=== PATIENT | female | born 2005 | race African-American/Black ===

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

== ENCOUNTER 2023-10-19 22:57 | Emergency (ER) | payer MEDICAID ==
[~2023-10-19] VITALS: Ht 157.5 cm; Wt 76.4 kg
[2023-10-19 23:00] VITALS: BP 107/66; PULSE 91; RESP 15; O2SAT 98
== END 2023-10-21 04:32 | disposition left against medical advice (07) ==
LOC: ER 22:57
DX: O20.8 Other hemorrhage in early pregnancy (principal); Z3A.01 Less than 8 weeks gestation of pregnancy

== ENCOUNTER 2024-02-14 18:13 | Emergency (ER) | payer MEDICAID ==
[~2024-02-14] VITALS: Ht 157.5 cm; Wt 67.4 kg
--- NOTE | 2024-02-14 18:44 | ED.PDOC ---
History of Present Illness HPI Comments 18-year-old female with no PMHx or PSHx presents with a chief complaint of nausea, vomiting, fever, and cough while being . Patient states that she is currently 23 weeks , . Patient mentions that she has been having a fever and cough for the past x 3 days, but has been having nausea and vomiting since 0500 this morning. Patient mentions also that she has not felt her baby moved since this morning. Patient denies any sick contacts at home, and reports that she last took Tylenol at 0500 this morning. Chief Complaint: Abdominal Pain Time Seen by MD: 18:35 Primary Care Provider: braulio Simmons Notes: Medications, Allergies Allergies: Coded Allergies: NO KNOWN ALLERGIES (Unverified , 08/01/18) Information Source: Patient Mode of Arrival: Ambulatory Severity: Moderate Timing: Days Duration: Since onset Prehospital treatment: None Past Medical History PAST MEDICAL HISTORY: Denies Surgical History: Denies all surgeries MAT INSPECTOR History: No Pertinent MAT INSPECTOR History Family History Family History: Reviewed,noncontributory to illness Social History Smoker: Non-Smoker Alcohol: Denies ETOH Use Drugs: Denies Drug Use Lives In: Home Constitutional: reports: fever; denies: chills, diaphoresis, fatigue, malaise, sweats, weakness, others EENTM: denies: blurred vision, double vision, ear bleeding, ear discharge, ear drainage, ear pain, ear ringing, eye pain, eye redness, hearing loss, mouth pain, mouth swelling, nasal discharge, nose bleeding, nose congestion, nose pain, photophobia, tearing, throat pain, throat swelling, voice changes, others Respiratory: reports: cough; denies: hemoptysis, orthopnea, SOB at rest, shortness of breath, SOB with excertion, stridor, wheezing, others Cardiovascular: denies: chest pain, dizzy spells, diaphoresis, Dyspnea on exertion, edema, irregular heart beat, left arm pain, lightheadedness, palpitations, PND, syncope, others Gastrointestinal: reports: nausea, vomiting; denies: abdomen distended, abd ominal pain, blood streaked bowels, constipated, diarrhea, dysphagia, difficulty swallowing, hematemesis, melena, poor appetite, poor fluid intake, rectal bleeding, rectal pain, others Genitourinary: reports: ; denies: abnormal vagina bleeding, burning, dyspareunia, dysuria, flank pain, frequency, hematuria, incontinence, pain, vag jessy discharge, urgency, others Neurological: denies: dizziness, fainting, headache, left sided numbness, left sided weakness, numbness, paresthesia, pre-existing deficit, right sided numbness, right sided weakness, seizure, speech problems, tingling, tremors, weakness, others Musculoskeletal: denies: back pain, gout, joint pain, joint swelling, muscle pain, muscle stiffness, neck pain, others Integumetry: denies: bruises, change in color, change in hair/nails, dryness, laceration, lesions, lumps, rash, wounds, others Allergic/Immunocompromised: denies: Difficulty Healing, Frequent Infections, Hives, Itching, others Hematologic/Lymphatic: denies: anemia, blood clots, easy bleeding, easy bruising, swollen glands, others Endocrine: denies: excessive hunger, excessive sweating, excessive thirst, excessive urination, flushing, intolerance to cold, intolerance to heat, unexplained weight gain, unexplained weight loss, others Psychiatric: denies: anxiety, bipolar disorder, depression, hopeless, panic disorder, schizophrenia, sleepless, suicidal, others All Other Systems: Reviewed and Negative Physical Exam General Appearance: No Apparent Distress, Normal HEENT: Normal ENT Inspection, Pharynx Normal, TMs Normal Neck: Full Range of Motion, Non-Tender, Normal, Normal Inspection Respiratory: Chest Non-Tender, Lungs Clear, No Accessory Muscle Use, No Respiratory Distress, Normal Breath Sounds Cardiovascular: No Edema, No JVD, No Murmur, No Gallop, Normal Peripheral Pulses, Regular Rate/Rhythm Breast Exam: Deferred Gastrointestinal: No Organomegaly, Non Tender, No Pulsatile Mass, Normal Bowel Sounds, Soft, Other ( ABDOMEN) Genitalia: Deferred Pelvic: Deferred Rectal: Deferred Extremities: No calf tenderness, Normal capillary refill, Normal inspection, Normal range of motion, Non-tender, No pedal edema Musculoskeletal : Apperance: Normal Neurologic: Alert, wildland firefighter II-XII nml as Tested, No Motor Deficits, Normal Affect, Normal Mood, No Sensory Deficits Cerebellar Function: Normal Reflexes: Normal Skin: Dry, Normal Color, Warm Lymphatic: No Adenopathy Was a procedure done? Was a procedure done?: No Differential Dx Considerations may include: Viral syndrome X-Ray, Labs, Meds, VS Vital Signs Date Time Temp Pulse Resp B/P (MAP) Pulse Ox O2 Delivery O2 Flow Rate FiO2 02/14/24 19:32 100.1 02/14/24 19:24 100 18 97 Room Air* 0 21 02/14/24 19:24 100.1 100 16 122/67 (85) 97 100.1 02/14/24 18:22 98.3 112 17 127/68 (87) 98 Lab Test 02/14/24 19:43 02/14/24 19:10 Range/Units Urine Color Light-orange Yellow Urine Clarity Turbid H Clear Urine pH 6.5 5.0-9.0 Urine Specific [place] 1.020 1.001-1.035 Urine Protein Trace H Negative Urine Ketones Negative Negative Urine Blood Negative Negative /uL Urine Nitrite Negative Negative Urine Bilirubin Negative Negative Urine Urobilinogen Normal Negative mg/dL Urine Leukocyte Esterase 3+ Negative /uL Urine RBC 4 0 - 4 /hpf Urine WBC 4 0 - 5 /hpf Urine Squamous Epithelial Cells Mod <5 /hpf Urine Bacteria Few H None Seen /hpf Urine Mucus Few None Seen Urine Glucose Normal Normal mg/dL White Blood Count 13.9 H 4.4-10.8 10^3/uL Red Blood Count 4.05 4.0-5.20 10^6/uL Hemoglobin 12.1 L 12.2-16.2 g/dL Hematocrit 36.7 36.0-46.0 % Mean Corpuscular Volume 90.5 80.0-100.0 fL Mean Corpuscular Hemoglobin 29.9 28.0-32.0 pg Mean Corpuscular Hemoglobin Concent 33.1 32.0-36.0 g/dL Red Cell Distribution Width 13.3 11.8-14.3 % Platelet Count 295 140-450 10^3/uL Mean Platelet Volume 8.5 6.9-10.8 fL Neutrophils (%) (Auto) 76.8 37.0-80.0 % Lymphocytes (%) (Auto) 11.1 10.0-50.0 % Monocytes (%) (Auto) 11.3 0.0-12.0 % Eosinophils (%) (Auto) 0.6 0.0-7.0 % Basophils (%) (Auto) 0.2 0.0-2.0 % Neutrophils # (Auto) 10.7 H 1.6-8.6 10 ^3/uL Lymphocytes # (Auto) 1.5 0.4-5.4 10 ^3/uL Monocytes # (Auto) 1.6 H 0-1.3 10 ^3/uL Eosinophils # (Auto) 0.1 0-0.8 10 ^3/uL Basophils # (Auto) 0 0-0.2 10 ^3/uL Nucleated Red Blood Cells 0.1 % Sodium Level 135 L 136-145 mmol/L Potassium Level 4.0 3.5-5.1 mmol/L Chloride Level 105 98-107 mmol/L Carbon Dioxide Level 24 20-31 mmol/L Anion Gap 6 5-15 Blood Urea Nitrogen < 5 L 9-23 mg/dL Creatinine 0.71 0.550-1.02 mg/dL Glomerular Filtration Rate Calc 125 >90 mL/min BUN/Creatinine Ratio 7.0 L 10.0-20.0 Serum Glucose 83 74-106 mg/dL Calcium Level 8.2 L 8.7-10.4 mg/dL Current Medications Medications (Trade) Dose Ordered Sig/Joni Route Start Time Stop Time Status Last Admin Acetaminophen (Tylenol Tablet) 1,000 mg ONCE ONCE PO 02/14/24 18:45 02/14/24 18:46 DC 02/14/24 19:32 Time of 1ST Reevaluation: 19:05 Reevaluation 1ST: Unchanged Patient Education/Counseling: Diagnosis, Treatment, Prognosis Family Education/Counseling: No Family Present Departure 1 Departure Time of Disposition: 21:21 (Patient is with a normal ultrasound. Patient likely has viral syndrome. She is feeling better we will discharge patient home with outpatient follow up) Impression: Primary Impression: Viral syndrome Additional Impression: Qualified Codes: Z3A.26 - 26 weeks gestation of Disposition: HOME / SELF CARE / HOMELESS Condition: Stable Additional Instructions: You likely have a viral illness. It is important to stay well rested and well hydrated. You can take Tylenol as needed for pain and fever. For a sore throat you can drink warm tea with honey. He should follow up with your regular doctor within 1 week to ensure you are doing better. If your symptoms worsen or you have any other concerns please return to the emergency room. Discharged With: Self Critical Care Note Critical Care Time?: No Stability Stability form required: No I personally scribed for KERRY GARCIA MD ([email or web address]) on 02/14/24 at 18:44. Electronically submitted by Chadwick Castaneda ([email or web address]). KERRY GARCIA MD Feb 14, 2024 18:44
--- NOTE | 2024-02-14 19:12 | DVH ---
OB ULTRASOUND, LIMITED CLINICAL INDICATION: 26wks, fever, nausea, and not feeling the baby move TECHNIQUE: Multiple grayscale ultrasound and M-mode images were obtained of the pelvis for evaluation of intrauterine . COMPARISON: None FINDINGS: A single living fetus is seen in cephalic presentation. Biparietal diameter: 5.61 cm (23 weeks, 1 days) Head Circumference: 20.9 cm (23 weeks, 0 days) Abdomen Circumference: 17.45 cm (22 weeks, 3 days) Femur Length: 3.84 cm (22 weeks, 2 days) Estimated weight: 504 grams (+/- 76 grams). Placenta: Anterior. Amniotic fluid: Visibly normal. Cervix is 3.3 cm and closed. heart rate: 172 beats/min. A complete anatomic survey was not performed on this exam. movement was detected on exam per [facility] respiratory director. IMPRESSION: Single living intrauterine with an estimated gestational age of 22 weeks, 5 days, corresp onding to an estimated date of delivery of 06/14/2024.
[2024-02-14 19:24] VITALS: BP 122/67; PULSE 100; RESP 18; O2SAT 97
[2024-02-14 19:32] VITALS: TEMP 100.1
[2024-02-14] MEDS: ACETAMINOPHEN 325 MG TAB PO ONE (19:32)
[2024-02-14] MEDS: ONDANSETRON ODT 4 MG TAB PO ONE (19:32)
[2024-02-14 20:04] LABS: Urine Bacteria FEW /hpf (None Seen); Urine Blood Negative /uL (Negative); Urine Clarity Turbid (Clear); Urine Color Light-Orange (Yellow); Urine Mucus FEW (None Seen); Urine Protein, UAD TRACE (Negative); Urine Urobilinogen Normal (Negative); Urine WBC 4 /hpf (0 - 5); Urine pH 6.5 (5.0-9.0)
[2024-02-14 20:05] LABS: Basophils # (auto) 0 10 ^3/uL (0-0.2); Basophils % (auto) 0.2 % (0.0-2.0); Eosinophils # (auto) 0.1 10 ^3/uL (0-0.8); Eosinophils % (auto) 0.6 % (0.0-7.0); Hematocrit 36.7 % (36.0-46.0); Hemoglobin 12.1 g/dL (12.2-16.2); Lymphocytes # (auto) 1.5 10 ^3/uL (0.4-5.4); Lymphocytes % (auto) 11.1 % (10.0-50.0); Mean Corpuscular Hemoglobin 29.9 pg (28.0-32.0); Mean Corpuscular Hgb Conc. 33.1 g/dL (32.0-36.0); Mean Corpuscular Volume 90.5 fL (80.0-100.0); Monocytes # (auto) 1.6 10 ^3/uL (0-1.3); Monocytes % (auto) 11.3 % (0.0-12.0); Neutrophils # (auto) 10.7 10 ^3/uL (1.6-8.6); Neutrophils % (auto) 76.8 % (37.0-80.0); Nucleated Red Blood Cells % 0.1 %; Platelet Count (auto) 295 10^3/uL (140-450); Red Blood Cells 4.05 10^6/uL (4.0-5.20); Red Cell Distribution Width 13.3 % (11.8-14.3); White Blood Cell 13.9 10^3/uL (4.4-10.8)
[2024-02-14 20:06] LABS: Chloride 105 mmol/L (98-107)
[2024-02-14 20:07] LABS: Anion Gap 6 (5-15); Carbon Dioxide 24 mmol/L (20-31)
[2024-02-14 20:12] LABS: Glucose 83 mg/dL (74-106)
[2024-02-14 20:17] LABS: Blood Urea Nitrogen < 5 mg/dL (9-23); Calcium 8.2 mg/dL (8.7-10.4); Sodium 135 mmol/L (136-145)
[2024-02-14] MEDS ORDERED: NITR-87 PO (21:30)
--- NOTE | 2024-02-14 21:31 | ED.PDOC ---
Departure 1 Departure Time of Disposition: 21:21 (Patient is with a normal ultrasound. Patient likely has viral syndrome. She is feeling better we will discharge patient home with outpatient follow up) Impression: Primary Impression: Viral syndrome Additional Impressions: Qualified Codes: Z3A.26 - 26 weeks gestation of Urinary tract infection Qualified Codes: N30.00 - Acute cystitis without hematuria Disposition: HOME / SELF CARE / HOMELESS Condition: Stable Additional Instructions: You have a urinary tract infection. You were prescribed antibiotics. Please take as directed. You can take Tylenol as needed for pain. It is important that he follow up with the regular doctor within 1 week to ensure you are doing better. If your symptoms worsen or you have any other concerns then please return to the emergency room. e-Prescriptions Nitrofurantoin Monohydrate Mac (Macrobid) 100 Mg Cap 100 MG PO BID for 7 Days, #14 CAP Prov: KERRY GARCIA MD 02/14/24 Discharged With: Self KERRY GARCIA MD Feb 14, 2024 21:31
== END 2024-02-14 23:26 | disposition home or self-care (01) ==
LOC: ER 18:17
DX: O23.42 Unspecified infection of urinary tract in pregnancy, second trimester (principal); O98.512 Other viral diseases complicating pregnancy, second trimester; O23.12 Infections of bladder in pregnancy, second trimester; N39.0 Urinary tract infection, site not specified; B34.9 Viral infection, unspecified; Z3A.26 26 weeks gestation of pregnancy
CPT/HCPCS: 36415; 76805; 80048; 81001; 85025; 99284; Q0162

== ENCOUNTER 2024-05-01 02:12 | Observation (INO) | payer MEDICAID ==
[~2024-05-01] VITALS: Ht 157.5 cm; Wt 90.7 kg
[~2024-05-01 02:12] MED LIST: NITR-87 PO
[2024-05-01] MEDS ORDERED: BETAMETHASONE ACET (30mg/5ml) 5ml Vial 6mg/ml IM ONE (03:30)
[2024-05-01] MEDS ORDERED: LACTATED RINGER'S 1,000 ML IV ONE (03:30)
[2024-05-01] MEDS ORDERED: TERBUTALINE SULFATE 1 MG/ML 1ML VIAL SC SCH (03:30)
[2024-05-01] MEDS: NIFEdipine 10 MG CAP PO SCH (04:03)
--- NOTE | 2024-05-01 05:54 | DVHDS2 ---
Discharge Summary Date of Admission May 01, 2024 at 02:12 Date of Discharge: May 01, 2024 Admitting Diagnosis labor Wounds: none Labs/Diagnostic Data: nl Brief Hx & Hospital Course: 34 weeks IUP with contractions slight change in dilation since admission ; patient initially refused Terb was given Procardia... she continued to contract mildly , no signs or symptom's of SROM. She subsequently was given Terb and Celestone 1st dose .... patient's mother with hx delivery 35 wks Consults/Reason for consult none Operations or Procedures none Condition at Discharge: Good Final Diagnosis/Problems List pre term labor 34 weeks Discharge Disposition: Home SNF Discharge Will this Physician continue t: No Discharge Instruct/Medications Diet: Regular Activity: Light activity (pelvic rest 4 weeks Labor precautions kick counts srom precautions) Follow Up/Referral: primary ob or L&D 24 hrs 2nd dose Celestone Medications: Defer to Chel DO as leaving and pateint in [place] observation Discharge Statement: "Patient was advised to return to the ER or call 911 if any headaches, dizziness, shortness of breath, chest pain, abdominal pain, bleeding, fevers, or worsening of medical condition. Patient was counseled about treatment plan, medications, possible side effects, patientverbalized understanding. All questions were answered to the best of my ability. This discharge took greater then 30 minutes in planning, reviewing documentation, counseling the patient, and discussing with other team members." ASSESSMENT ASSESSMENT Assessment PTL 34 weeks Visit Coding OBGYN Date of Service: May 01, 2024 Billing Provider: DIANN WEATHERS DO AUTOMOTIVE REPAIR TECHNICIAN Common Visit Codes: 31389-GDS/OBS SAME DATE (LOW), 48561-AXM/OBS SAME DATE (MOD), 59817-MTH/OBS SAME DATE (HIGH) AUTOMOTIVE REPAIR TECHNICIAN Procedure Codes: 42465-85- NON-STRESS TEST DIANN WEATHERS DO May 01, 2024 05:54
[2024-05-01] MEDS ORDERED: AMPICILLIN SOD 2GM INJ 2 GM in SODIUM CHL 0.9% 100 ML IV ONE (06:45)
[2024-05-01] MEDS ORDERED: MAGNESIUM SULFATE 100 ML IV ONE (06:45)
[2024-05-01] MEDS ORDERED: MAGNESIUM SULFATE 40MG/ML 1,000 ML IV SCH (06:45)
--- NOTE | 2024-05-01 13:57 | DVHDS2 ---
Physician Discharge Progress N Final Diagnosis: pre term labor 34 weeks Operations or Procedures: Operations or Procedures nst 34 wks refused mg,procardia and terb Condition on Discharge: Unstable Disposition: AMA SNF Discharge Will this Physician continue t: No Discharge Instructions: Diet: Regular, See Comment Activity: Follow Up/Referral: primary ob or L&D 24 hrs 2nd dose Celestone Medications: Defer to Chel OJEDA as leaving and pateint in [place] observation Follow Up Care: Specialist: getachew diaz [facility] Discharge Statement: "Patient was advised to return to the ER or call 911 if any headaches, dizziness, shortness of breath, chest pain, abdominal pain, bleeding, fevers, or worsening of medical condition. Patient was counseled about treatment plan, medications, possible side effects, patientverbalized understanding. All questions were answered to the best of my ability. This discharge took greater then 30 minutes in planning, reviewing docu mentation, counseling the patient, and discussing with other team members." Visit Coding OBGYN Date of Service: May 01, 2024 Billing Provider: NIKKI DOBBINS DO ROLL FORMING SUPERVISOR Common Visit Codes: 32828-EKNCWHC INP/OBS CARE (HIGH) ROLL FORMING SUPERVISOR Procedure Codes: 69427-16- NON-STRESS TEST NIKKI DOBBINS DO May 01, 2024 13:57
== END 2024-05-01 07:03 | disposition left against medical advice (07) ==
LOC: LDRP 02:12
PROVIDERS: ADMIT Obstetrics & Gynecology; ATTEND Obstetrics & Gynecology
DX: O60.03 Preterm labor without delivery, third trimester (principal); O99.891 Other specified diseases and conditions complicating pregnancy; M54.9 Dorsalgia, unspecified; Z98.890 Other specified postprocedural states; Z79.899 Other long term (current) drug therapy; Z3A.34 34 weeks gestation of pregnancy
CPT/HCPCS: 59025; 81002; 96360; 96361; 96372; G0378; J0290; J0702; J3105

== ENCOUNTER 2024-05-20 14:42 | Observation (INO) | payer MEDICAID ==
[~2024-05-20] VITALS: Ht 157.5 cm; Wt 94.3 kg
[2024-05-20] MEDS ORDERED: PREN-96 PO (15:47)
--- NOTE | 2024-05-20 15:50 | DVH ---
BIOPHYSICAL PROFILE HISTORY: decreased movement TECHNIQUE: Multiple transabdominal real-time grayscale sonographic images through the gravid uterus of the fetus with duplex Doppler color flow and M-mode spectral analysis FINDINGS: BIOPHYSICAL PROFILE: breathing score: 2 movement score: 2 tone score: 2 Quantitative MARIA ELENA score: 2 (MARIA ELENA: 10.8 Cm.) Total score: 8/8 The cervix not measured Single live fetus in cephalic presentation. heart rate 147 beats per minute. Anterior Grade 2 placenta without previa or abruption Single live fetus at 37 weeks 1 day Biophysical profile score 8/8 corresponding to an RADHA of 06/09/2024 Estimated weight not calculated g IMPRESSION: 1. Biophysical profile score: 8/8 HS:Y
--- NOTE | 2024-05-20 17:15 | DVHDS2 ---
Physician Discharge Progress N Final Diagnosis: dec movement,no care 34 wks Operations or Procedures: Operations or Procedures nst,[id number] wks Condition on Discharge: Good Disposition: Home Discharge Instructions: Diet: Regular, Consistent carbohydrate Activity: Light activity Medications: na Follow Up Care: Specialist: one day at Discharge Statement: "Patient was advised to return to the ER or call 911 if any headaches, dizziness, shortness of breath, chest pain, abdominal pain, bleeding, fevers, or worsening of medical condition. Patient was counseled about treatment plan, medications, possible side effects, patientverbalized understanding. All questions were answered to the best of my ability. This discharge took greater then 30 minutes in planning, reviewing documentation, counseling the patient, and discussing with other team members." Visit Coding OBGYN Date of Service: May 20, 2024 Billing Provider: NIKKI DOBBINS DO KAYAK MAKER Common Visit Codes: 31979-HQLJHNW INP/OBS CARE (HIGH) KAYAK MAKER Procedure Codes: 64353-49- NON-STRESS TEST NIKKI DOBBINS DO May 20, 2024 17:15
== END 2024-05-20 16:00 | disposition home or self-care (01) ==
LOC: LDRP 14:42
PROVIDERS: ADMIT Obstetrics & Gynecology; ATTEND Obstetrics & Gynecology
DX: O36.8130 Decreased fetal movements, third trimester, not applicable or unspecified (principal); Z3A.34 34 weeks gestation of pregnancy; Z79.899 Other long term (current) drug therapy; Z98.890 Other specified postprocedural states
CPT/HCPCS: 76818; 81002; 94760; G0378; 76819